=== PATIENT | male | born 1995 | race Caucasian/White ===

== ENCOUNTER 2020-11-07 22:03 | Emergency (ER) | payer OTHER ==
[~2020-11-07] VITALS: Ht 180.3 cm; Wt 101.1 kg
--- NOTE | 2020-11-07 22:21 | PHYS DOC ---
Past History Past Medical History: Sciatica General Adult HPI: HPI: ".. I was doing PT... and doing lift.. and I had back strain in pass.. 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 Patient has history of previous injury to the low back. Patient localizes pain to the L4-L5 area radiates into both hips. Injury occurred this morning during PT while doing lifts. Patient normally healthy. Up-to-date vaccinations. No recent travel. No specific ill contacts. No other trauma other than the lift exercise during PT. Patient not had Covid vaccination. No history of cancer. No history of fevers. Has been able to defecate and urinate without problems. Review of Systems: Review of Systems: Constitutional: Denies fever or chills Eyes: Denies change in visual acuity HENT: Denies nasal congestion or sore throat Respiratory: Denies cough or shortness of breath Cardiovascular: Denies chest pain or edema GI: Denies abdominal pain, nausea, vomiting, bloody stools or diarrhea : Denies dysuria Musculoskeletal: Complains of lumbar sacral back pain Integument: Denies rash Neurologic: Denies headache, focal weakness or sensory changes Endocrine: Denies polyuria or polydipsia Lymphatic: Denies swollen glands Psychiatric: Denies depression or anxiety Family History: Family History: Noncontributory Current Medications: Current Meds: See nursing for home meds Allergies: Allergies: Allergic amoxicillin causes rash Physical Exam: PE: Constitutional: Well developed, well nourished, no acute distress, non-toxic appearance. [] HENT: Normocephalic, atraumatic, bilateral external ears normal, oropharynx moist, no oral exudates, nose normal. [] Eyes: PERRLA, EOMI, conjunctiva normal, no discharge. [] Neck: Normal range of motion, no tenderness, supple, no stridor. [] Cardiovascular:Heart rate regular rhythm, no murmur [] Lungs & Thorax: Bilateral breath sounds clear to auscultation [] Abdomen: Bowel sounds normal, soft, no tenderness, no masses, no pulsatile masses. [] No saddle loss reported. Skin: Warm, dry, no erythema, no rash. [] Back: No tenderness, no CVA tenderness. [] Findings of Lumbar muscle spasms Extremities: No tenderness, no cyanosis, no clubbing, ROM intact, no edema. [] Neurologic: Alert and oriented X 3, normal motor function, normal sensory function, no focal deficits noted. [] DTRs +2 patella and brachial. Psychologic: Affect normal, judgement normal, mood normal. 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 PHYSICIAN: JUANIS JAMES MD REASON: Midline lumbar pain after lifting PROCEDURE: CT LUMBAR SPINE WO CONTRAST Exam: CT of lumbar spine without contrast INDICATION: Midline lumbar pain after lifting TECHNIQUE: Sequential axial images through the lumbar spine obtained without IV contrast. Sagittal and coronal reformatted images were reconstructed from the axial data and reviewed. Exposure: One or more of the following in the visualized dose reduction techniques were utilized for this examination: 1. Automated exposure control 2. Adjustment of the MA and/or KV according to patient size 3. Use of iterative of reconstructive technique Comparisons: None FINDINGS: Vertebral body heights and alignment are well-maintained. Fracture through the lumbar spine is not identified. There is a mild broad-based disc bulge at L4-L5 causing mild spinal canal stenosis. No significant neural foraminal stenosis is identified. Visualized paraspinal soft tissues are unremarkable. IMPRESSION: Spondylotic changes lumbar spine with broad-based disc bulge at L4-L5 causing at least mild spinal canal stenosis. Electronically signed by: Sade Mcbride MD (11/07/2020 11:43 PM) [facility] DICTATED AND SIGNED BY: SADE MCBRIDE MD DATE: 11/07/20 6125 CC: JUANIS JAMES MD; NON,STAFF ~MTH0 0 Heart Score: C/O Chest Pain: N/A Risk Factors: Risk Factors: DM, Current or recent (<one month) smoker, HTN, HLP, family history of CAD, obesity. Risk Scores: Score 0 - 3: 2.5% MACE over next 6 weeks - Discharge Home Score 4 - 6: 20.3% MACE over next 6 weeks - Admit for Clinical Observation Score 7 - 10: 72.7% MACE over next 6 weeks - Early Invasive Strategies Course & Med Decision Making: Course & Med Decision Making Pertinent Labs and Imaging studies reviewed. (See chart for details) Take Tylenol and ibuprofen for pain. Ice packs as needed. Continue lidocaine patches. Follow-up with [facility]. Did have findings of spinal stenosis and disc protrusion. Patient copy of your CT with you on follow-up. Impression: 1. Lumbar sacral strain 2. Spinal stenosis 3 Disc bulge at L4-L5 [] [place] Disclaimer: [place] Disclaimer: This electronic medical record was generated, in whole or in part, using a voice recognition dictation system. Departure Departure: Referrals: NON,STAFF (PCP) Scripts Hydrocodone/Ibuprofen (HYDROCODONE-IBUPROFEN 7.5-200 ) 1 Each Tablet 1 TAB PO PRN Q6HRS PRN for PAIN, #30 TAB 0 Refills Prov: JUANIS JAMES MD 11/08/20 Cyclobenzaprine Hcl (CYCLOBENZAPRINE HCL) 10 Mg Tablet 10 MG PO TID PRN for spasms, #30 TAB Prov: JUANIS JAMES MD 11/08/20 JUANIS JAMES MD Nov 07, 2020 22:21
[2020-11-07] MEDS ORDERED: KETOROLAC 60 MG/2 ML VIAL. IM ONE (22:30)
--- NOTE | 2020-11-07 23:46 | RAD ---
Exam: CT of lumbar spine without contrast INDICATION: Midline lumbar pain after lifting TECHNIQUE: Sequential axial images through the lumbar spine obtained without IV contrast. Sagittal an d coronal reformatted images were reconstructed from the axial data and reviewed. Exposure: One or more of the following in the visualized dose reduction techniques were utilized for this examination: 1. Automated exposure control 2. Adjustment of the MA and/or KV according to patient size 3. Use of iterative of reconstructive technique Comparisons: None FINDINGS: Vertebral body heights and alignment are well-maintained. Fracture through the lumbar spine is not identified. There is a mild broad-based disc bulge at L4-L5 causing mild spinal canal stenosis. No significant ne ural foraminal stenosis is identified. Visualized paraspinal soft tissues are unremarkable. IMPRESSION: Spondylotic changes lumbar spine with broad-based disc bulge at L4-L5 causing at least mild spinal ca nal stenosis. Electronically signed by: Sade Nowak MD (11/07/2020 11:43 PM) [facility]
[2020-11-08] MEDS ORDERED: CYCL-331 PO (00:44)
[2020-11-08] MEDS ORDERED: HYDR-1179 PO (00:44)
[2020-11-08 01:00] VITALS: BP 126/84
== END 2020-11-08 01:03 | disposition home or self-care (01) ==
LOC: ER 22:03
DX: S39.012A Strain of muscle, fascia and tendon of lower back, initial encounter (principal); M48.061 Spinal stenosis, lumbar region without neurogenic claudication; Z88.1 Allergy status to other antibiotic agents; X50.9XXA Other and unspecified overexertion or strenuous movements or postures, initial encounter; Y93.89 Activity, other specified; Y92.89 Other specified places as the place of occurrence of the external cause; Y99.8 Other external cause status
CPT/HCPCS: 72131; 96372; 99284; J1885

== ENCOUNTER 2021-04-01 07:50 | Emergency (ER) | payer OTHER ==
[~2021-04-01] VITALS: Ht 180.3 cm; Wt 102.0 kg
[~2021-04-01 07:50] MED LIST: CYCL10TA19 PO; HYDR-1179 PO
--- NOTE | 2021-04-01 08:03 | PHYS DOC ---
Past History Past Medical History: Sciatica Past Surgical History: Tonsillectomy Alcohol Use: Occasionally Adult General HPI HPI Patient is a 25-year-old male presenting for lower back pain. This is an acute on chronic issue. 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 He was seen at our facility and diagnosed with L4/L5 mild spinal stenosis. He has since followed up with his primary care physician for this and has had MRI testing and other outpatient services such as physical therapy. He reports he has been at baseline health but admits this morning while trying to push an ottoman forward pain, he experienced recurrent left-sided lower back pain that radiates to left posterior and lateral portion of the thigh. Nothing known makes better or worse. Pain is been constant since onset and worsens with certain twisting motions of the lower back. Denies any significant red flag signs or symptoms of back pain such as fever, chronic steroid use, immunosuppression, saddle anesthesia or loss of bladder and bowel control Review of Systems Review of Systems Fourteen body systems of review of systems have been reviewed. See HPI for pertinent positives and negative responses, other lara all other systems are negative, non-pertinent or non-contributory Allergies Allergies Allergies Coded Allergies Type Severity Reaction Last Updated Verified amoxicillin Allergy Unknown 11/07/20 Yes Physical Exam Physical Exam Constitutional: Well developed, well nourished, nontoxic in appearance but does appear uncomfortable due to pain HENT: Normocephalic, atraumatic, bilateral external ears normal, oropharynx moist, no oral exudates, nose normal. Eyes: PERRLA, EOMI, conjunctiva normal, no discharge. Neck: Normal range of motion, no tenderness, supple, no stridor. Cardiovascular: Heart rate regular, sinus rhythm, no murmurs rubs or gallops Lungs & Thorax: Bilateral breath sounds clear to auscultation Abdomen: Bowel sounds normal, soft, no tenderness, no masses, no pulsatile masses. Nonsurgical abdomen, no peritoneal signs Skin: Warm, dry, no erythema, no rash. Back: No midline tenderness, no CVA tenderness. Patient has pain over left lower lumbar region with radiation down posterior and lateral portion of left leg to the level of the knee. No motor or sensory or neuro changes of left lower extremity with downgoing toes bilaterally with stimulation. Positive straight leg raise test of left. Unremarkable Raul test bilaterally. 2+ patellar reflexes to bilateral lower extremities Extremities: No tenderness, no cyanosis, no clubbing, ROM intact, no edema. Neurologic: Alert and oriented X 3, no saddle anesthesia, normal motor & sensory function, no focal deficits noted. Psychologic: Affect normal, judgement normal, mood normal. Current Patient Data Vital Signs Vital Signs Date Time Temp Pulse Resp B/P (MAP) Pulse Ox O2 Delivery O2 Flow Rate FiO2 04/01/21 07:55 98.0 70 18 133/95 (108) 96 Room Air Vital Signs Date Time Temp Pulse Resp B/P (MAP) Pulse Ox O2 Delivery O2 Flow Rate FiO2 04/01/21 07:55 98.0 70 18 133/95 (108) 96 Room Air EKG EKG [] Radiology/Procedures Radiology/Procedures [] Heart Score C/O Chest Pain: No Risk Factors: Risk Factors: DM, Current or recent (<one month) smoker, HTN, HLP, family history of CAD, obesity. Risk Scores: Risk Factors: DM, Current or recent (<one month) smoker, HTN, HLP, family history of CAD, obesity. Course & Med Decision Making Course & Med Decision Making ABCs, history and physical examination non-concerning. There are no red flag signs of back pain present. I have low suspicion for malignancy/mets, acute Spinal Fracture, Vertebral Osteomyelitis, Epidural Abscess, Infected or Obstructing Kidney Stone. Their presentation appears most likely to be secondary to non-emergent musculoskeletal etiology vs non-emergent disc herniation. Likely exacerbation of prior mild bulging disc ED Workup: Defer imaging and labwork for outpatient follow up at this time. Patient given [place] 7.5 in steroid shot while in ER. He initially reported increased anxiety, tachycardia and palpitations after receiving steroid shot but was monitored for 30 minutes afterwards without issues, likely benign reaction. Disposition: Discharge with close PCP follow-up for repeat evaluation, physical therapy and if needed MRI imaging. Supportive care practices discussed with joint decision made to administer steroid shot and short-term narcotic pain medication for severe pain only. Strict return precautions discussed with patient with full understanding. Dragon Disclaimer Dragon Disclaimer This electronic medical record was generated, in whole or in part, using a voice recognition dictation system. Departure Departure: Impression: Primary Impression: Back pain with sciatica Disposition: HOME / SELF CARE / HOMELESS Condition: STABLE Referrals: KAILA FINNEGAN (PCP) Patient Instructions: Back Exercises, Generic, SportsMed, Back Injury Prevention Additional Instructions: You were evaluated in the Emergency Department today for back pain. Your evaluation suggests no acute abnormalities which require further intervention at this time. Your pain is most likely due to to a musculoskeletal cause that should improve with supportive care. - Move around as tolerated but avoiding heavy lifting. ``Bed rest is not recommended nor is it the best treatment for low back pain. - Medications will help control your discomfort: - -Ibuprofen (800 mg every 8 hours for pain) with food. - -Tylenol - Do not drink alcohol, drive a car, operate machinery, or get up on ladders or heights when taking any prescribed pain medications. - Do not drive home if you received prescribed pain medications here in the ED. Return to the ED immediately if you develop any of the following problems: - Leaking urine or difficulty urinating; - Inability to control your bowels; - New numbness or weakness in your legs or numbness between your legs; - Inability to walk - Fever Scripts Hydrocodone Bit/Acetaminophen (HYDROCODONE-APAP 7.5-325 ) 1 Each Tablet 1 TAB PO PRN Q6HRS PRN for PAIN, #14 TAB 0 Refills Prov: JAGDISH TAVARES DO 04/01/21 JAGDISH TAVARES DO Apr 01, 2021 08:03
[2021-04-01] MEDS ORDERED: HYDROcodone/APAP 7.5/325MG 1 TAB TABLET PO ONE (08:30)
[2021-04-01] MEDS ORDERED: methylPREDNISolone ACETATE 40 MG/ML VIAL. IM ONE (08:30)
[2021-04-01] MEDS ORDERED: HYDR-2765 PO (08:42)
[2021-04-01] MEDS ORDERED: CYCL10TA19 PO (09:54)
[2021-04-01 10:20] VITALS: BP 138/85
--- NOTE | 2021-04-01 12:42 | EKG ---
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
== END 2021-04-01 10:26 | disposition home or self-care (01) ==
LOC: ER 07:50
DX: M54.42 Lumbago with sciatica, left side (principal); Z88.1 Allergy status to other antibiotic agents
CPT/HCPCS: 93005; 96372; 99285; J1030

== ENCOUNTER 2021-04-29 13:50 | Emergency (ER) | payer OTHER ==
[~2021-04-29] VITALS: Ht 180.3 cm; Wt 102.0 kg
[~2021-04-29 13:50] MED LIST changes: +HYDR-2765 PO
[2021-04-29 15:30] VITALS: BP 140/87
--- NOTE | 2021-04-29 16:11 | PHYS DOC ---
Past History Past Medical History: Sciatica Additional Past Medical Histor: BULGING DISC L4, L5 (KATHERINE LANGE APRN) Past Surgical History: Tonsillectomy (KATHERINE LANGE APRN) Alcohol Use: None (KATHERINE LANGE APRN) General Adult EDM: Chief Complaint: TOE PROBLEM HPI: HPI: Patient is a 26-year-old male who presents to the emergency department for left fourth toe pain after he kicked a high chair last night. Patient thinks that his toe was broken. He is reporting ecchymosis to his toe. He rates it 7 out of 10 that is worse with bearing weight and movement. He denies any decreased movement or decreased sensation in his toe. (KATHERINE LANGE APRN) Review of Systems: Review of Systems: Musculoskeletal: See HPI Integument: See HPI Neurologic: See HPI (KATHERINE LANGE APRN) Allergies: Allergies: Allergies Coded Allergies Type Severity Reaction Last Updated Verified amoxicillin Allergy Unknown 11/07/20 Yes (KATHERINE LANGE APRN) Physical Exam: PE: Constitutional: Well developed, well nourished, no acute distress, non-toxic appearance. [] HENT: Normocephalic, atraumatic, bilateral external ears normal, oropharynx moist, no oral exudates, nose normal. [] Eyes: PERRL, EOMI, conjunctiva normal, no discharge. [] Neck: Normal range of motion, no stridor Cardiovascular: Normal peripheral perfusion Lungs & Thorax: Normal work of breathing, no tachypnea Abdomen: Soft and flat Skin: Warm, dry, no erythema, no rash. Left fourth toe: Ecchymosis noted to the distal portion of left fourth toe, range of motion intact, neuro intact Back: Normal range of motion Extremities: No tenderness, no cyanosis, no clubbing, ROM intact, no edema. [] Neurologic: Alert and oriented X 3, normal motor function, normal sensory function, no focal deficits noted. [] Psychologic: Affect normal, judgement normal, mood normal. [] (KATHERINE LANGE APRN) EKG: EKG: [] (KATHERINE LANGE APRN) Radiology/Procedures: Radiology/Procedures: [] (KATHERINE LANGE APRN) Heart Score: C/O Chest Pain: N/A Risk Factors: Risk Factors: DM, Current or recent (<one month) smoker, HTN, HLP, family history of CAD, obesity. Risk Scores: Score 0 - 3: 2.5% MACE over next 6 weeks - Discharge Home Score 4 - 6: 20.3% MACE over next 6 weeks - Admit for Clinical Observation Score 7 - 10: 72.7% MACE over next 6 weeks - Early Invasive Strategies (KATHERINE LANGE APRN) Course & Med Decision Making: Course & Med Decision Making Pertinent Labs and Imaging studies reviewed. (See chart for details) [] Presents emergency department for left fourth toe pain after kicking a highchair. Imaging was performed in the ER that showed no acute fracture as read by supervising physician. Nail is intact. Patient still is messi taped to the double-sided. Patient advised to continue wearing the messi tape for comfort and support. He is also advised to use ice, elevation and take Tylenol/ibuprofen for any pain. I discussed with patient all findings and diagnostic testing as well as the need to follow-up with PCP for further evaluation and treatment or return to the ER if any new or worsening symptoms. Strict return precautions were also discussed at length. Patient voiced und erstanding and agreement with the plan. Patient is hemodynamically stable at the time of disposition. (KATHERINE LANGE APRN) Dragon Disclaimer: Dragon Disclaimer: This electronic medical record was generated, in whole or in part, using a voice recognition dictation system. (KATHERINE LANGE APRN) Attending Co-Sign The patient was seen and interviewed as well as examined at the bedside. The chart was reviewed. The case was discussed. Agree with the plan of care. (MARY ANDREA DO) Departure Departure: Impression: Primary Impression: Toe contusion Qualified Codes: S90.122A - Contusion of left lesser toe(s) without damage to nail, initial encounter Disposition: HOME / SELF CARE / HOMELESS Condition: GOOD Referrals: KAILA FINNEGAN (PCP) Patient Instructions: Messi Taping of Toes Additional Instructions: You were seen in the emergency department today for toe injury. An x-ray was performed that showed no acute findings. You can continue to messi tape your toe to the toe beside it for comfort. You can use ice and elevation to help with swelling. Take Tylenol and/ibuprofen for pain. Follow-up with your primary care provider tomorrow regarding your ER visit. Please return to the emergency department if you develop worsening of your pain, inability to bear weight or ambulate, decreased sensation in your toe or decreased range of motion. KATHERINE LANGE APRN Apr 29, 2021 16:11 MARY ANDREA DO Apr 30, 2021 07:14
--- NOTE | 2021-04-29 17:06 | RAD ---
XR FOOT_LEFT 3 VIEWS History: Injury. Comparison: None. Technique: 3 views of the left foot. Findings: Osseous mineralization is normal. No acute fracture or dislocaton. No significant degenerative change s. Soft tissues are unremarkable. Impression: 1. No acute findings in the left foot. Electronically signed by: Dave Jamison MD (04/29/2021 5:04 PM) [facility]
== END 2021-04-29 17:09 | disposition home or self-care (01) ==
LOC: ER 13:50
DX: S90.122A Contusion of left lesser toe(s) without damage to nail, initial encounter (principal); Z88.1 Allergy status to other antibiotic agents; W22.03XA Walked into furniture, initial encounter; Y93.89 Activity, other specified; Y92.89 Other specified places as the place of occurrence of the external cause; Y99.8 Other external cause status
CPT/HCPCS: 73630; 99283